=== PATIENT | male | born 1950 | race Caucasian/White ===

== ENCOUNTER → 2021-11-26 | Outpatient (CLI) | payer MEDICARE ==
[~2021-11-26] MED LIST: ALBUTEROL0.63 MG/3 INH; ALDACTONE 25MG25 MG PO; CORDARONE 200M200 MG PO; GABAPENTIN600 MG PO; GLIPIZIDE5 MG PO; LASIX 40 MG TAB40 MG PO; MEDROL DOSEPAK 24 MG PO; NITROGLYCERIN0.4 MG SL; SPIRIVA18 MCG INH; VITAMIN D3250 MCG PO; XARELTO20 MG PO; ZOCOR20 MG PO
== END ==
LOC: ECHO 11-25 09:00
DX: I20.9 Angina pectoris, unspecified (principal); I08.3 Combined rheumatic disorders of mitral, aortic and tricuspid valves; I27.20 Pulmonary hypertension, unspecified
CPT/HCPCS: ECHO; 78452; 93017; 93306; A9502; J2785